=== PATIENT | male | born 1945 | race African-American/Black ===

== ENCOUNTER 2024-10-25 23:51 | Emergency (ER) | payer MEDICARE ==
[~2024-10-25] VITALS: Ht 180.3 cm; Wt 90.0 kg
[2024-10-26 00:52] VITALS: PULSE 85; RESP 18; O2SAT 99
[2024-10-26] MEDS: IPRATROPIUM BROMIDE (0.02%) 0.5MG/2.5ML NEB HHN STA (00:52)
[2024-10-26] MEDS: ALBUTEROL (0.083%) 2.5MG/3ML NEB HHN STA (00:52)
[2024-10-26] MEDS: METHYLPREDNISOLONE SOD SUCC 125MG/2ML (ACT-O-VIAL) IV STA (01:14)
[2024-10-26 01:16] LABS: HEMATOCRIT. 33.3 % (42.0-52.0); HEMOGLOBIN. 10.9 g/dL (14.0-18.0); MEAN CORPUSCULAR HEMOGLOBIN 26.6 pg (28.0-32.0); MEAN CORPUSCULAR HGB CONC 32.7 g/dL (31.0-37.0); MEAN CORPUSCULAR VOLUME 81.3 fL (80.0-94.0); MEAN PLATELET VOLUME 9.5 fl (7.4-10.4); PLATELET 176 x1000/uL (130-400); WHITE BLOOD COUNT 8.9 x1000/uL (4.5-11.0)
[2024-10-26 01:17] LABS: DIFFERENTIAL COMMENT 1
[2024-10-26 01:22] LABS: CHLORIDE 100 mEq/L (98-107); SODIUM 136 mEq/L (136-145)
[2024-10-26 01:23] LABS: CALCIUM 9.4 mg/dL (8.7-10.4); CARBON DIOXIDE 25 mEq/L (21-32)
[2024-10-26 01:28] LABS: GLUCOSE 101 mg/dL (70-105); UREA NITROGEN BLOOD 32 mg/dL (9-23)
[2024-10-26 01:29] LABS: TROPONIN I HIGH SENSITIVITY 37 ng/L (3.0-53)
[2024-10-26 01:42] LABS: CREATININE 2.2 mg/dL (0.6-1.3)
[2024-10-26] MEDS: HYDRALAZINE 20MG/ML VIAL IV NR (01:42)
[2024-10-26 02:24] LABS: BASOPHILS % 0.9 % (0.0-2.0); EOSINOPHILS % 1.1 % (0.0-5.0); LYMPHOCYTES % 10.8 % (20.0-50.0); MONOCYTES % 7.3 % (2.0-8.0); NEUTROPHILS % 79.9 % (40.0-76.0)
[2024-10-26 04:28] LABS: TROPONIN I HIGH SENSITIVITY 37 ng/L (3.0-53)
[2024-10-26 07:52] LABS: ANISOCYTOSIS 1+; PLATELET ESTIMATE NORMAL
[2024-10-26 10:00] VITALS: BP 158/95; PULSE 96; RESP 11; TEMP 37.1; O2SAT 96
[2024-10-26] MEDS ORDERED: MAGNESIUM/ALUMINUM HYDROXIDE/SIMETHICONE 30ML UDC PO PRN (11:00)
[2024-10-26] MEDS ORDERED: IPRATROPIUM/ALBUTEROL 0.5-3(2.5)MG/3ML NEB HHN PRN (11:00)
[2024-10-26] MEDS ORDERED: GUAIFENESIN 200MG/10ML SUGAR FREE UDC PO PRN (11:00)
[2024-10-26] MEDS ORDERED: CLONIDINE 0.1MG TABLET PO PRN (11:00)
[2024-10-26] MEDS ORDERED: ACETAMINOPHEN 325MG TABLET PO PRN ×2 (11:00)
[2024-10-26] MEDS ORDERED: DOCUSATE SODIUM 100MG CAPSULE PO PRN (11:00)
[2024-10-26] MEDS ORDERED: ONDANSETRON HCL 4MG/2ML INJ IV PRN (11:00)
[2024-10-26] MEDS ORDERED: HYDRALAZINE 20MG/ML VIAL IV PRN (11:15)
[2024-10-26] MEDS ORDERED: SODIUM CHLORIDE 0.9% 1,000 ML IV SCH (11:15)
[2024-10-26] MEDS ORDERED: ENOXAPARIN 40MG/0.4ML SYR SUBCUT SCH (11:30)
[2024-10-26 11:34] LABS: IRON 80 ug/dL (65-175)
[2024-10-26 11:35] LABS: TRIGLYCERIDE 43 mg/dL (0-150)
[2024-10-26 11:36] LABS: LDL CHOLESTEROL 69 mg/dL (5-100)
[2024-10-26 11:37] LABS: ALBUMIN 4.1 g/dL (3.2-4.8); CHOLESTEROL 162 mg/dL (<200); HDL CHOLESTEROL 69 mg/dL (>55); PHOSPHORUS 3.2 mg/dL (2.5-4.9); TOTAL IRON BINDING CAPACITY 351 ug/dl (250-425)
[2024-10-26 11:40] LABS: FERRITIN 20 ng/mL (22-322); FOLIC ACID (FOLATE) SERUM 19.18 ng/mL (>5.38); VITAMIN B12 SERUM 529 pg/mL (211-911)
[2024-10-26 11:56] LABS: ETHANOL BLOOD < 10 mg/dL (<10)
[2024-10-27] MEDS ORDERED: PANTOPRAZOLE 40MG DR TABLET PO SCH (07:50)
[2024-10-27] MEDS ORDERED: AMLODIPINE 5MG TABLET PO SCH (09:00)
[2024-10-27] MEDS ORDERED: ASPIRIN 81MG TABLET PO SCH (09:00)
== END 2024-10-26 11:14 | disposition left against medical advice (07) ==
LOC: ER 23:51 → EDBEDREQ 10-26 00:36 → EDBEDREQTM 10-26 04:20 → EDBEDREQ 10-26 04:20 → ER 10-26 11:14
DX: D50.8 Other iron deficiency anemias (principal); E78.5 Hyperlipidemia, unspecified; J44.1 Chronic obstructive pulmonary disease with (acute) exacerbation; R07.89 Other chest pain; I12.9 Hypertensive chronic kidney disease with stage 1 through stage 4 chronic kidney disease, or unspecified chronic kidney disease; N17.9 Acute kidney failure, unspecified; D64.9 Anemia, unspecified; F14.10 Cocaine abuse, uncomplicated; F17.210 Nicotine dependence, cigarettes, uncomplicated; Z79.899 Other long term (current) drug therapy
CPT/HCPCS: 99285; 80061; 80048; 82040; 80320; 82607; 82728; 82746; 83880; 83540; 83550; 83735; 84100; 85025; 84484; 36415; 71045; 94640; 93005; 98960; 96374; 96375; J0360; J2919; 94070; 94664; G0480